=== PATIENT | male | born 1990 | race Caucasian/White ===

== ENCOUNTER 2021-03-17 15:20 | Emergency (ER) | payer OTHER, MEDICAID ==
[~2021-03-17] VITALS: Ht 175.3 cm; Wt 99.3 kg
[2021-03-17] MEDS ORDERED: FLEXERIL PO (17:05)
[2021-03-17 17:09] VITALS: BP 140/64
== END 2021-03-17 17:09 | disposition home or self-care (01) ==
LOC: M.ERS 15:20
DX: S46.911A Strain of unspecified muscle, fascia and tendon at shoulder and upper arm level, right arm, initial encounter (principal); Z88.8 Allergy status to other drugs, medicaments and biological substances; X58.XXXA Exposure to other specified factors, initial encounter; Y93.89 Activity, other specified; Y92.89 Other specified places as the place of occurrence of the external cause; Y99.8 Other external cause status